=== PATIENT | female | born 1985 | race Caucasian/White ===

== ENCOUNTER 2017-04-24 11:01 | Inpatient (IN) | payer BC ==
[~2017-04-24] VITALS: Ht 170.2 cm; Wt 80.6 kg
[2017-04-24] MEDS ORDERED: PREDNISONE10 MG PO (11:12)
[2017-04-24] MEDS ORDERED: ZITHROMAX Z PA250 MG PO (11:13)
[2017-04-24] MEDS ORDERED: PRENATAL1 TA7 PO (11:14)
[2017-04-24 12:28] VITALS: BP 145/79; PULSE 112; TEMP 98.5
[2017-04-24 13:01] LABS: BASO # 0.1 (0.0-0.2); BASO % 0.4 % (0.0-2.0); EOS # 0.1 (0.0-0.7); EOS % 0.3 % (0-4.0); GRAN # 30.8 (1.4-6.5); GRAN % 87.1 % (42.2-75.2); LYMPH % 5.7 % (20.0-51.0); MEAN CELL VOLUME 96 fl (80.0-100.0); MEAN CORPUSCULAR HGB CONC 35 g/dl (33.0-37.0); MEAN PLATELET VOLUME 9.1 fl (7.4-10.4); MONO # 1.7 (0.1-0.6); MONO % 4.7 % (1.7-9.3); PLATELET COUNT 433 K/mm3 (130-400); RED BLOOD COUNT 3.45 M/mm3 (4.10-5.30)
[2017-04-24 13:04] LABS: HEMATOCRIT 33.2 % (37.0-47.0); HEMOGLOBIN 11.6 g/dl (12.5-16.0); MEAN CORPUSCULAR HEMOGLOBIN 34 pg (27.0-31.0); WHITE BLOOD COUNT 35.3 K/mm3 (4.8-10.8)
[2017-04-24 13:12] LABS: ADJUSTED CALCIUM 9.5 mg/dL (8.4-10.2); ALBUMIN 3.8 gm/dL (3.5-5.0); BILIRUBIN,TOTAL 0.4 mg/dL (0.0-1.0); CALCIUM 9.3 mg/dL (8.4-10.2); CREATININE, serum 0.65 mg/dL (0.52-1.25); POTASSIUM 3.8 mmol/L (3.4-5.0); TOTAL PROTEIN 7.1 gm/dL (6.4-8.2)
[2017-04-24 13:40] LABS: ADD PATHOLOGY DIFF REVIEW NO
[2017-04-24 14:14] LABS: BAND 13 % (0-10); LYMPHOCYTE 3 % (20.0-51.0); NEUTROPHILS 80 % (42.0-75.2); PLATELET ESTIMATE INCREASED (NORMAL); TOTAL CELLS COUNTED 100
[2017-04-24 14:27] LABS: MUCOUS Present /lpf; PH 5 (5-8); SQUAMOUS EPITHELIAL 0-2 /hpf; URINE APPEARANCE Clear; URINE BACTERIA Rare /hpf; URINE BILIRUBIN Negative (NEGATIVE); URINE BLOOD Negative (NEGATIVE); URINE COLOR Yellow; URINE GLUCOSE Negative (NEGATIVE); URINE KETONE 1+ (NEGATIVE); URINE LEUKOCYTE ESTERASE Negative (NEGATIVE); URINE PROTEIN(semi-quant) 1+ (NEGATIVE); URINE RBC 0-2 /hpf; URINE UROBILINOGEN Negative (NEGATIVE); URINE WBC 0-2 /hpf
[2017-04-24 14:52] LABS: COLLECTION METHOD CLEAN CATCH
[2017-04-24 17:10] VITALS: BP 134/80; PULSE 107; TEMP 98
[2017-04-24 18:08] LABS: ARTERIAL BLD GAS O2 SATURATION 94.6 % (92-100); ARTERIAL BLD GAS TCO2 CT 18.1; ARTERIAL BLOOD GAS BASE EXCESS -5.2 (-2-2); ARTERIAL BLOOD GAS HCO3 17.3 meq/L (22-26); ARTERIAL BLOOD GAS PHT 7.45 C (7.35-7.45); ARTERIAL BLOOD GAS PO2 73.1 mmHg (80-100); ARTERIAL BLOOD GAS PO2T 73.1 (80-100); ARTERIAL BLOOD GAS pH 7.45 (7.35-7.45); ATS? YES; OXYHEMOGLOBIN 93.8 %
[2017-04-24 21:09] VITALS: BP 153/84; PULSE 114; TEMP 99
[2017-04-25 01:19] VITALS: BP 155/84; PULSE 68; TEMP 98.2
[2017-04-25 03:49] VITALS: BP 135/75; PULSE 96; TEMP 98.7
[2017-04-25 06:16] LABS: ADD PATHOLOGY DIFF REVIEW NO
[2017-04-25 06:19] LABS: MEAN CELL VOLUME 98 fl (80.0-100.0); MEAN CORPUSCULAR HGB CONC 34 g/dl (33.0-37.0); PLATELET COUNT 422 K/mm3 (130-400); RED BLOOD COUNT 3.26 M/mm3 (4.10-5.30)
[2017-04-25 06:29] LABS: ALLEN TEST YES; ARTERIAL BLD GAS O2 SATURATION 96.7 % (92-100); ARTERIAL BLD GAS TCO2 CT 22.4; ARTERIAL BLOOD GAS BASE EXCESS -1.4 (-2-2); ARTERIAL BLOOD GAS HCO3 21.5 meq/L (22-26); ARTERIAL BLOOD GAS PHT 7.46 C (7.35-7.45); ARTERIAL BLOOD GAS PO2 89.8 mmHg (80-100); ARTERIAL BLOOD GAS PO2T 90.4 (80-100); ARTERIAL BLOOD GAS pH 7.47 (7.35-7.45); ATS? YES; OXYHEMOGLOBIN 95.8 %
[2017-04-25 06:30] LABS: ALLENS TEST RESULT PASS
[2017-04-25 06:38] LABS: CALCIUM 9.2 mg/dL (8.4-10.2); CREATININE, serum 0.67 mg/dL (0.52-1.25); POTASSIUM 3.7 mmol/L (3.4-5.0)
[2017-04-25 07:13] LABS: HEMATOCRIT 31.9 % (37.0-47.0); HEMOGLOBIN 10.8 g/dl (12.5-16.0); MEAN CORPUSCULAR HEMOGLOBIN 33 pg (27.0-31.0); WHITE BLOOD COUNT 28.1 K/mm3 (4.8-10.8)
[2017-04-25 08:13] VITALS: BP 128/85; PULSE 122; TEMP 97.6
[2017-04-25 08:28] LABS: BAND 42 % (0-10); LYMPHOCYTE 3 % (20.0-51.0); METAMYELOCYTE 1 % (0-0); MYELOCYTE 2 % (0-0); NEUTROPHILS 50 % (42.0-75.2); PLATELET ESTIMATE INCREASED (NORMAL); TOTAL CELLS COUNTED 100
[2017-04-25 14:15] VITALS: BP 122/62; PULSE 102; TEMP 98.5
[2017-04-25 20:02] VITALS: BP 126/63; PULSE 96; TEMP 97.4
[2017-04-26 02:32] VITALS: BP 137/75; PULSE 95; TEMP 98.1
[2017-04-26 07:20] LABS: ADD PATHOLOGY DIFF REVIEW NO
[2017-04-26 07:29] LABS: MEAN CELL VOLUME 100 fl (80.0-100.0); MEAN CORPUSCULAR HGB CONC 34 g/dl (33.0-37.0); MEAN PLATELET VOLUME 9.3 fl (7.4-10.4); PLATELET COUNT 405 K/mm3 (130-400); RED BLOOD COUNT 2.82 M/mm3 (4.10-5.30)
[2017-04-26 07:34] LABS: HEMATOCRIT 28.1 % (37.0-47.0); HEMOGLOBIN 9.4 g/dl (12.5-16.0); MEAN CORPUSCULAR HEMOGLOBIN 33 pg (27.0-31.0)
[2017-04-26 07:36] LABS: ADJUSTED CALCIUM 9.6 mg/dL (8.4-10.2); BILIRUBIN,TOTAL 0.5 mg/dL (0.0-1.0); CALCIUM 8.8 mg/dL (8.4-10.2); CREATININE, serum 0.62 mg/dL (0.52-1.25); MAGNESIUM 1.8 mg/dL (1.6-2.3); POTASSIUM 3.5 mmol/L (3.4-5.0); TOTAL PROTEIN 5.8 gm/dL (6.4-8.2)
[2017-04-26 08:08] VITALS: BP 126/67; PULSE 102; TEMP 97.7
[2017-04-26 08:53] LABS: BAND 42 % (0-10); LYMPHOCYTE 20 % (20.0-51.0); MYELOCYTE 2 % (0-0); NEUTROPHILS 35 % (42.0-75.2); PLATELET ESTIMATE INCREASED (NORMAL); TOTAL CELLS COUNTED 100
[2017-04-26 11:48] VITALS: BP 112/77; PULSE 104; TEMP 97.9
[2017-04-26 14:36] VITALS: BP 129/65; PULSE 119; TEMP 97.8
[2017-04-26 20:15] VITALS: BP 132/55; PULSE 113; TEMP 97.7
[2017-04-27 02:41] VITALS: BP 109/65; PULSE 67; TEMP 97.6
[2017-04-27 06:28] LABS: ADD PATHOLOGY DIFF REVIEW NO
[2017-04-27 06:36] LABS: MEAN CELL VOLUME 100 fl (80.0-100.0); MEAN CORPUSCULAR HGB CONC 33 g/dl (33.0-37.0); MEAN PLATELET VOLUME 8.9 fl (7.4-10.4); PLATELET COUNT 470 K/mm3 (130-400); RED BLOOD COUNT 2.76 M/mm3 (4.10-5.30); WHITE BLOOD COUNT 18.2 K/mm3 (4.8-10.8)
[2017-04-27 06:38] LABS: HEMATOCRIT 27.6 % (37.0-47.0); HEMOGLOBIN 9.2 g/dl (12.5-16.0); MEAN CORPUSCULAR HEMOGLOBIN 33 pg (27.0-31.0)
[2017-04-27 06:42] LABS: ADJUSTED CALCIUM 9.7 mg/dL (8.4-10.2); ALBUMIN 2.9 gm/dL (3.5-5.0); BILIRUBIN,TOTAL 0.3 mg/dL (0.0-1.0); CALCIUM 8.8 mg/dL (8.4-10.2); CREATININE, serum 0.63 mg/dL (0.52-1.25); MAGNESIUM 1.6 mg/dL (1.6-2.3); POTASSIUM 3.6 mmol/L (3.4-5.0); TOTAL PROTEIN 5.7 gm/dL (6.4-8.2)
[2017-04-27 07:08] LABS: BAND 9 % (0-10); EOSINOPHIL 1 % (0-4); LYMPHOCYTE 18 % (20.0-51.0); NEUTROPHILS 65 % (42.0-75.2); PLATELET ESTIMATE INCREASED (NORMAL); TOTAL CELLS COUNTED 100
[2017-04-27 07:41] VITALS: BP 109/65; PULSE 91; TEMP 97.5
[2017-04-27 16:01] VITALS: BP 136/84; PULSE 103; TEMP 98.2
[2017-04-27 19:26] VITALS: BP 129/72; PULSE 90; TEMP 97.6
[2017-04-28 00:32] VITALS: BP 109/56; PULSE 85; TEMP 98.2
[2017-04-28 07:14] LABS: MEAN CELL VOLUME 99 fl (80.0-100.0); MEAN CORPUSCULAR HGB CONC 33 g/dl (33.0-37.0); MEAN PLATELET VOLUME 8.8 fl (7.4-10.4); PLATELET COUNT 479 K/mm3 (130-400); RED BLOOD COUNT 3.12 M/mm3 (4.10-5.30); WHITE BLOOD COUNT 17.4 K/mm3 (4.8-10.8)
[2017-04-28 07:20] LABS: ADD PATHOLOGY DIFF REVIEW NO; HEMATOCRIT 30.8 % (37.0-47.0); HEMOGLOBIN 10.2 g/dl (12.5-16.0); MEAN CORPUSCULAR HEMOGLOBIN 33 pg (27.0-31.0)
[2017-04-28 07:29] LABS: ADJUSTED CALCIUM 9.7 mg/dL (8.4-10.2); ALBUMIN 3.2 gm/dL (3.5-5.0); BILIRUBIN,TOTAL 0.3 mg/dL (0.0-1.0); CALCIUM 9.1 mg/dL (8.4-10.2); CREATININE, serum 0.65 mg/dL (0.52-1.25); POTASSIUM 3.7 mmol/L (3.4-5.0); TOTAL PROTEIN 6.1 gm/dL (6.4-8.2)
[2017-04-28 09:05] LABS: BAND 34 % (0-10); LYMPHOCYTE 21 % (20.0-51.0); NEUTROPHILS 44 % (42.0-75.2); PLATELET ESTIMATE INCREASED (NORMAL); TOTAL CELLS COUNTED 100
[2017-04-28 11:49] VITALS: BP 143/79; PULSE 101; TEMP 97.6
[2017-04-28] MEDS ORDERED: OMNICEF 300MG300 MG PO (11:57)
[2017-04-28] MEDS ORDERED: PROAIR HFA0.09 MG/AC IH (11:58)
[2017-04-28] MEDS ORDERED: AEROCHAMBER1 DEV IH (11:58)
[2017-04-28] MEDS ORDERED: PHENERGAN W/CO120 M1 PO (11:59)
[2017-04-28 12:30] VITALS: BP 129/73
[2017-04-28] MEDS ORDERED: LIDODERM 5% PATC1 EA TP (13:37)
[2017-04-28] MEDS ORDERED: PREDNISONE10 MG PO (13:39)
[2017-04-28] MEDS ORDERED: FLONASEALLERGY NS (13:40)
[2017-04-28] MEDS ORDERED: FERROUS GL325 MG/TAB PO (13:41)
== END 2017-04-28 15:09 | disposition home or self-care (01) | DRG 781 ==
LOC: MEDICAL 11:01
PROVIDERS: Internal Medicine; Obstetrics & Gynecology; Physician Assistant
DX: O98.813 Other maternal infectious and parasitic diseases complicating pregnancy, third trimester (principal); A41.9 Sepsis, unspecified organism; J13 Pneumonia due to Streptococcus pneumoniae; O16.3 Unspecified maternal hypertension, third trimester; O12.13 Gestational proteinuria, third trimester; O99.013 Anemia complicating pregnancy, third trimester; D64.9 Anemia, unspecified; Z3A.34 34 weeks gestation of pregnancy
CPT/HCPCS: 99223-AI; 99232-AI; 99233-AI; J0696; J7120; J7512

== ENCOUNTER 2017-05-13 07:07 | Inpatient (IN) | payer BC ==
[~2017-05-13] VITALS: Ht 183 cm; Wt 83.2 kg
[2017-05-13] VITALS (54 sets, daily range): BP systolic 108–161; BP diastolic 58–98; PULSE 73–123; TEMP 97.4–98.2
[~2017-05-13 07:07] MED LIST: AEROCHAMBER1 DEV IH; FERROUS GL325 MG/TAB PO; FLONASEALLERGY NS; LIDODERM 5% PATC1 EA TP; OMNICEF 300MG300 MG PO; PHENERGAN W/CO120 M1 PO; PREDNISONE10 MG PO; PRENATAL1 TA7 PO; PROAIR HFA0.09 MG/AC IH; ZITHROMAX Z PA250 MG PO
[2017-05-13] MEDS ORDERED: TYLENOL 500MG500 MG PO (07:42)
[2017-05-13 08:39] LABS: BASO % 0.3 % (0.0-2.0); EOS # 0.1 (0.0-0.7); EOS % 0.8 % (0-4.0); GRAN # 10.5 (1.4-6.5); LYMPH % 14.8 % (20.0-51.0); MEAN CELL VOLUME 98 fl (80.0-100.0); MEAN CORPUSCULAR HEMOGLOBIN 34 pg (27.0-31.0); MEAN CORPUSCULAR HGB CONC 34 g/dl (33.0-37.0); MEAN PLATELET VOLUME 9.3 fl (7.4-10.4); MONO % 6.9 % (1.7-9.3); PLATELET COUNT 415 K/mm3 (130-400); RED BLOOD COUNT 3.58 M/mm3 (4.10-5.30); WHITE BLOOD COUNT 13.8 K/mm3 (4.8-10.8)
[2017-05-13 09:01] LABS: ADJUSTED CALCIUM 9.6 mg/dL (8.4-10.2); BILIRUBIN,TOTAL 0.6 mg/dL (0.0-1.0); CALCIUM 9.6 mg/dL (8.4-10.2); CREATININE, serum 0.67 mg/dL (0.52-1.25); TOTAL PROTEIN 7.1 gm/dL (6.4-8.2)
[2017-05-14] VITALS (7 sets, daily range): BP systolic 115–134; BP diastolic 71–77; PULSE 82–95; TEMP 97.3–98.1
[2017-05-14] MEDS ORDERED: IBU600 MG PO (09:58)
[2017-05-14] MEDS ORDERED: PERCOCET 325 MG1 TA2 PO (09:58)
[2017-05-15 07:00] VITALS: BP 111/71; PULSE 78; TEMP 97.8
== END 2017-05-15 13:50 | disposition home or self-care (01) | DRG 775 ==
LOC: LDR 07:07 → OB 07:07 → LDR 15:55 → OB 23:00
PROVIDERS: Obstetrics & Gynecology
PROC: 10E0XZZ Delivery of Products of Conception, External Approach (ICD-10-PCS; principal; 2017-05-13)
PROC: 3E033VJ Introduction of Other Hormone into Peripheral Vein, Percutaneous Approach (ICD-10-PCS; 2017-05-13)
PROC: 0HQ9XZZ Repair Perineum Skin, External Approach (ICD-10-PCS; 2017-05-13)
DX: O14.04 Mild to moderate pre-eclampsia, complicating childbirth (principal); O70.0 First degree perineal laceration during delivery; Z3A.37 37 weeks gestation of pregnancy; Z37.0 Single live birth
CPT/HCPCS: J0595; J2590; J7120

== ENCOUNTER 2018-11-02 22:04 | Inpatient (IN) | payer BC ==
[~2018-11-02] VITALS: Ht 170.2 cm; Wt 83.2 kg
[~2018-11-02 22:04] MED LIST changes: +IBU600 MG PO; +PERCOCET 325 MG1 TA2 PO; +TYLENOL 500MG500 MG PO
--- NOTE | 2018-11-02 22:05 | NUR ---
Ambulatory to unit for labor assessment, accompanied by spouse. Oriented to room, monitor, plan of care. Pt reports regular contractions for the last 2 hours.
[2018-11-02 22:30] VITALS: BP 133/83; PULSE 95
[2018-11-02 22:39] VITALS: BP 129/94; BP 134/85; PULSE 90; PULSE 94; TEMP 98.2; TEMP 98.4
--- NOTE | 2018-11-02 23:00 | NUR ---
Pt shifting position in bed, stating, the baby's really moving alot, EFM traces to maternal heart rate.
[2018-11-02 23:30] VITALS: BP 123/77
[2018-11-03] VITALS (17 sets, daily range): BP systolic 94–154; BP diastolic 55–82; PULSE 66–100; TEMP 97.4–98.9
--- NOTE | 2018-11-03 00:15 | NUR ---
OPALE as noted. Pt reports "these are reallly getting strong, fast"
--- NOTE | 2018-11-03 00:30 | NUR ---
EFM tracing maternal if not held in place, r/t movement and frequent position changes of pt.
[2018-11-03 00:51] LABS: BASO % 0.2 % (0.0-2.0); EOS # 0.1 (0.0-0.7); EOS % 0.9 % (0-4.0); GRAN # 8.6 (1.4-6.5); GRAN % 67.6 % (42.2-75.2); HEMATOCRIT 35.2 % (37.0-47.0); HEMOGLOBIN 12.4 g/dl (12.5-16.0); LYMPH % 23.7 % (20.0-51.0); MEAN CELL VOLUME 95 fl (80.0-100.0); MEAN CORPUSCULAR HEMOGLOBIN 34 pg (27.0-31.0); MEAN CORPUSCULAR HGB CONC 35 g/dl (33.0-37.0); MEAN PLATELET VOLUME 9.4 fl (7.4-10.4); MONO # 0.9 (0.1-0.6); MONO % 6.8 % (1.7-9.3); PLATELET COUNT 344 K/mm3 (130-400); REDCELL DISTRIBUTION WIDTH-CV 12.7 % (11.5-14.5)
--- NOTE | 2018-11-03 01:15 | NUR ---
into bed for epidural placement. See anesthesia record. EFM tracing maternal heart rate while sitting on edge of bed for epidural placement.
--- NOTE | 2018-11-03 01:24 | NUR ---
Epidural single dose, see anesthesia record.
--- NOTE | 2018-11-03 01:42 | NUR ---
SVE complete and +2. Pt relaxed, comfortable, denies urge to push.
--- NOTE | 2018-11-03 01:54 | NUR ---
Dr Martinez into room, pt set up for delivery. 0157 Vaginal delivery of female infant by Dr Martinez.
--- NOTE | 2018-11-03 02:02 | NUR ---
placenta delivers spont and intact with 3 vessell cord. 30unit Pitocin in 500cc LR started at bolus rate. 0208 Perineal inspection and repair complete. Ice pack to perineum and bed together.
--- NOTE | 2018-11-03 03:50 | NUR ---
IV to INT. Motrin per pt request for cramping.
--- NOTE | 2018-11-03 05:50 | NUR ---
Epidural catheter dc'd. Up to bathroom with steady gait.Voids large amount, performs own pericare, clean gown on and ambulates to post- room.
--- NOTE | 2018-11-03 07:30 | NUR ---
Rests in bed, alert. Baby brought in from the nursery. Denies any needs at this time.
--- NOTE | 2018-11-03 08:30 | NUR ---
0905 Rests in bed, alert. Request medication. Percocet 5/325 mg p.o. given per request and as ordered.
--- NOTE | 2018-11-03 10:30 | NUR ---
Presents to labor and delivery. States contractions getting stronger. Assessment done, questions offered and answered.
[2018-11-04] VITALS: BP 118/77; PULSE 78; TEMP 98.1
[2018-11-04 04:30] VITALS: BP 105/62; PULSE 81; TEMP 97.7
[2018-11-04] MEDS ORDERED: PERCOCET 325 MG1 TA2 PO (07:21)
[2018-11-04] MEDS ORDERED: MOTRIN 800800 MG/TAB PO (07:21)
[2018-11-04 07:30] VITALS: BP 115/75; PULSE 87; TEMP 98.4
--- NOTE | 2018-11-04 09:09 | NUR ---
Initial visit attempt; Mom using phone, Director Of Math quietly offered congratulations and left a card of congratulations for the of her daughter and information regarding the availability of spiritual care at [facility].
[2018-11-04 19:45] VITALS: BP 135/82; PULSE 76; TEMP 97.5
[2018-11-05 08:00] VITALS: BP 129/81; PULSE 78; TEMP 97.5
== END 2018-11-05 10:55 | disposition home or self-care (01) | DRG 768 ==
LOC: LDRO 22:04 → LDR 22:08 → LDRO 11-03 00:19 → LDR 11-03 00:20 → LDRO 11-03 00:20 → OB 11-03 06:00 → LDR 11-03 06:28 → OB 11-03 06:28
PROVIDERS: Student in an Organized Health Care Education/Training Program; ADMIT Obstetrics & Gynecology
PROC: 10E0XZZ Delivery of Products of Conception, External Approach (ICD-10-PCS; principal; 2018-11-03)
PROC: 0TQDXZZ Repair Urethra, External Approach (ICD-10-PCS; 2018-11-03)
DX: O99.824 Streptococcus B carrier state complicating childbirth (principal); Z37.0 Single live birth; O13.3 Gestational [pregnancy-induced] hypertension without significant proteinuria, third trimester; O71.5 Other obstetric injury to pelvic organs; Z3A.38 38 weeks gestation of pregnancy; Z88.0 Allergy status to penicillin
CPT/HCPCS: OP; J2590; J2795; J7120

== ENCOUNTER → 2024-03-04 | Outpatient (CLI) | payer BC ==
[~2024-03-04] MED LIST changes: +MOTRIN 800800 MG/TAB PO
== END ==
LOC: MC.RAD 07:49
DX: Z12.31 Encounter for screening mammogram for malignant neoplasm of breast (principal)